=== PATIENT | female | born 1960 | race Caucasian/White ===

== ENCOUNTER 2017-07-14 20:31 | Emergency (ER) | payer BC ==
[~2017-07-14] VITALS: Ht 165.1 cm; Wt 57.1 kg
[2017-07-14 20:50] VITALS: Ht 165.1 cm; Wt 57.1 kg
[2017-07-14 22:20] VITALS: BP 115/68
== END 2017-07-14 22:20 | disposition home or self-care (01) ==
LOC: ED 20:31
DX: N39.0 Urinary tract infection, site not specified (principal)